=== PATIENT | female | born 1995 | race Caucasian/White ===

== ENCOUNTER → 2019-10-12 08:50 | Outpatient (CLI) | payer OTHER, SELFPAY ==
--- NOTE | ~2019-10-12 | US_ITS ---
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 No new suspicious cys tic or solid mass is identified. IMPRESSION: Stable, probably benign left breast mass. Follow-up targeted left breast ultrasound in six months is recommended. BI-RADS category 3, probably benign findings. Reviewed, dictated and finalized at location A. IMPRESSION: Stable, probably benign left breast mass. Follow-up targeted left breast ultras ound in six months is recommended. BI-RADS category 3, probably benign findings.
== END ==
PROVIDERS: Visit Provider Advanced Practice Midwife
DX: R92.8 Other abnormal and inconclusive findings on diagnostic imaging of breast (principal)
CPT/HCPCS: 76642